=== PATIENT | female | born 1975 | race African-American/Black ===

== ENCOUNTER 2020-09-24 09:54 | Outpatient (REF) | payer MEDICAID, SELFPAY | END 2020-09-24 09:55 | disposition home or self-care (01) | LOC: HO.LAB 09:54 | PROVIDERS: Visit Provider Internal Medicine | DX: Z20.828 Contact with and (suspected) exposure to other viral communicable diseases (principal) | CPT/HCPCS: C9803; U0003 ==

== ENCOUNTER 2021-09-11 11:27 | Emergency (ER) | payer BC, MEDICAID, SELFPAY ==
--- NOTE | ~2021-09-11 | CT_ITS ---
EXAMINATION: CT HEAD WITHOUT CONTRAST CLINICAL INFORMATION: Elevated blood pressure and dizziness. COMPARISON: None TECHNIQUE: Contiguous axial imaging was performed from the skull base to vertex without intravenous administration of contrast. This CT examination was performed using dose optimization techniques as appropriate, variously including the following: *Automated exposure control *Adjustment of mA and/or kV according to patient size (this includes techniques or standardized protocols for targeted exams where dose is matched to indication/reason for exam; i.e. extremities or head) *Use of iterative reconstruction technique DLP: 711 mGy-cm FINDINGS: There is no evidence of acute intracranial hemorrhage or territorial infarction. No abnormal mass effect or midline shift is seen. Handy to white matter differentiation is well preserved. No extra-axial fluid collections are identified. The ventricles are normal in size. There is no abnormal attenuation within the brain parenchyma. The osseous structures and soft tissues are normal. The mastoid air cells and visualized portions of the paranasal sinuses are well aerated. CT/CT head/brain wo con IMPRESSION: No acute intracranial process seen.
--- NOTE | ~2021-09-11 | CT_ITS ---
EXAMINATION: CT ANGIOGRAM OF THE CHEST WITH CONTRAST (CT PULMONARY ANGIOGRAM FOR PE) CT ABDOMEN AND PELVIS WITH CONTRAST CLINICAL INFORMATION: Dizziness, shortness of breath and hypertension. Possible adrenal abnormality. COMPARISON: CXR from 09/11/2021 TECHNIQUE: Prior to contrast administration, noncontrast localization images were obtained. Subsequently, multidetector volumetric imaging was performed from the thoracic inlet to below the diaphragms following the administration of 85 mL Omnipaque 350 intravenous contrast. Also, multidetector CT imaging evaluation the abdomen and pelvis was performed after the use of intravenous contrast. No contrast reaction reported. Sagittal, coronal, and MIP oblique sagittal reformatted images were obtained on the CT workstation, uploaded to PACS, and reviewed. This CT examination was performed using dose optimization techniques as appropriate, variously including the following: *Automated exposure control *Adjustment of mA and/or kV according to patient size (this includes techniques or standardized protocols for targeted exams where dose is matched to indication/reason for exam; i.e. extremities or head) *Use of iterative reconstruction technique DLP: Total exam dose-length product 1359 mGy-cm FINDINGS: CHEST- LUNGS AND PLEURA: Lungs are well expanded and clear. Trachea and central airways are widely patent and normal in caliber. No lung nodules. No pulmonary edema, pneumothorax or pleural effusion. QUALITY OF STUDY/CONTRAST BOLUS: Satisfactory. CARDIOVASCULAR: The pulmonary arteries are normal in size. No embolic filling defects are identified within the main, lobar or segmental vessels. The heart size is normal. No pericardial effusion. Thoracic aorta is normal; no aneurysm or dissection. MEDIASTINUM/LOWER NECK: The esophagus is normal. No mediastinal mass. Thyroid gland is unremarkable. LYMPHATICS: No pathologic sized axillary, hilar or mediastinal lymph nodes. OSSEOUS STRUCTURES: Thoracic vertebra have normal height and alignment. No suspicious bone lesions. ABDOMEN AND PELVIS- LIVER: The liver has normal size, shape, and attenuation. No evidence of liver mass. GALLBLADDER AND BILIARY TREE: Gallbladder is without radiopaque stones, wall thickening or pericholecystic fluid. No dilated bile ducts. PANCREAS: Normal. No edema, pancreatic ductal dilatation or mass. SPLEEN: Normal. ADRENAL GLANDS: Normal. KIDNEYS AND URETERS: The kidneys have normal size and cortical thickness. No perinephric fluid collection. No urolithiasis or hydroureteronephrosis. BLADDER: Normal. No calculi or wall thickening. BOWEL AND PERITONEUM: Stomach is unremarkable. No dilated loops of bowel. The appendix is normal. No overt bowel wall thickening or mesenteric fat stranding. No ascites or pneumoperitoneum. ABDOMINAL WALL: Unremarkable. VASCULATURE: Normal. LYMPH NODES: No pathologic sized lymph nodes in the abdomen or pelvis. No inguinal lymphadenopathy. PELVIC VISCERA: Anteflexed, anteverted uterus is mildly enlarged, heterogeneous due to presence of leiomyomas. A submucosal leiomyoma of the right uterine fundus measures up to approximately 4 cm in its maximum dimension. Left ovary is unremarkable. 3 cm dermoid cyst of the right ovary has fat attenuation. If this has not been documented on previous imaging, than it could be further evaluated with MR imaging of the pelvis performed without and with IV contrast. A small, physiologic amount of free fluid is present in the posterior cul-de-sac. SKELETAL: The lumbar vertebra have normal height and alignment. Moderate facet arthropathy at L5-S1. Pelvic bones and proximal femurs are intact. No suspicious osseous lesion. There is osteophyte formation and subarticular sclerosis at the pubic symphysis. CT/CT angio chest PE protocol IMPRESSION: * No acute abnormalities in the chest. No evidence of pulmonary embolism. * Adrenal glands are normal. No evidence of adrenal adenoma. * Leiomyomatous uterus. * 3 cm right ovarian dermoid.
--- NOTE | ~2021-09-11 | XR_ITS ---
EXAMINATION: XR CHEST CLINICAL INFORMATION: There is old dizziness. COMPARISON: None TECHNIQUE: 2 views of the chest were obtained. FINDINGS: No significant abnormality is noted involving the heart, lungs, mediastinum, bony thorax or soft tissues. XR/XR chest 2V IMPRESSION: Unremarkable chest examination.
[2021-09-11 11:36] VITALS: BP 174/104; PULSE 92; O2SAT 100
[2021-09-11 11:51] VITALS: BP 161/69; PULSE 96; RESP 18; TEMP 36.8; O2SAT 98; BMI 41.3
[2021-09-11 12:50] LABS: MANUAL DIFF FLAG NO
[2021-09-11 12:57] LABS: Basophils Absolute Auto 0.1 X10*3/uL (0.0-0.2); Basophils Percent Auto 0.9 % (0-2); Eosinophils Percent Auto 0.6 % (0-4); Hematocrit 31.5 % (37.0-47.0); Imm Gran Abs Auto 0.01 X10*3/uL (0.00-0.03); Imm Gran Pct Auto 0.2 % (0.0-0.4); Lymphocytes Percent Auto 30.2 % (20-40); Mean Corpuscular HGB Conc 28.6 g/dl (31.0-35.0); Mean Corpuscular Hemoglobin 23.3 pg (27.0-33.0); Mean Corpuscular Volume 81.6 fL (80.0-98.0); Mean Platelet Volume 9.4 fL (9.4-12.3); Monocytes Absolute Auto 0.6 X10*3/uL (0.1-1.2); Monocytes Percent Auto 9.1 % (2-11); Neutrophils Absolute Auto 3.9 x10*3/uL (2.0-8.3); Platelet Count 488 X10*3/uL (160-400); Red Blood Count 3.86 X10*6/uL (4.20-5.50); Red Cell Distribution Width 16.4 % (11.0-16.0); White Blood Count 6.6 X10*3/uL (4.8-10.8)
[2021-09-11 13:16] LABS: Alanine Aminotransferase 13 U/L (0-31); Albumin Level 4.1 g/dL (3.5-5.0); Alkaline Phosphatase 65 U/L (39-117); Anion Gap 11 (12-20); Aspartate Amino Transferase 17 U/L (5-31); Bilirubin Total 0.2 mg/dL (0.0-1.0); Blood Urea Nitrogen 10 mg/dL (9-16); Carbon Dioxide 26 mmol/L (22-29); Chloride 100 mmol/L (96-108); Estimated Glomerular Filt Rate > 60; Glucose Random 97 mg/dL (60-115); Potassium 3.9 mmol/L (3.3-5.1); Sodium 133 mmol/L (135-145); Total Protein 8.3 g/dL (6.5-8.0)
[2021-09-11 15:08] VITALS: BP 151/90; PULSE 120; RESP 20; O2SAT 100
--- NOTE | 2021-09-11 16:02 | ECG_ITS ---
Test Reason : HIGH BP, DIZZINESS Blood Pressure : / mmHG Vent. Rate : 100 BPM Atrial Rate : 100 BPM P-R Int : 140 ms QRS Dur : 074 ms QT Int : 342 ms P-R-T Axes : 046 039 022 degrees QTc Int : 441 ms Normal sinus rhythm Normal ECG When compared with ECG of 20-JAN-2019 16:41, No significant change was found Heart rate has increased Referred By: Radha Arzola Electronically Signed By:LILLY BARKLEY MD
--- NOTE | 2021-09-11 16:03 | ED_ITS ---
HPI - General Adult General Chief complaint: General Medical Stated complaint: HIGH BLOOD PRESSURE 173/104 Time Seen by Provider: 09/11/21 15:54 Related Data Allergies Allergy/AdvReac Type Severity Reaction Status Date / Time No Known Allergies Allergy Verified 09/11/21 11:51 [No Known Allergies*] FOR[facility]LY [facility] Social History Social History Advance Directives: No Advance Directives Information Provided: No Patient : No Physical Exam Vital Signs: Vital Signs: Last Vital Signs Temp 98.2 F 09/11/21 11:51 Pulse 120 H 09/11/21 15:08 Resp 20 09/11/21 15:08 BP 151/90 H 09/11/21 15:08 Pulse Ox 100 09/11/21 15:08 Body Mass Index 41.3 Medical Decision Making Lab Data Result diagrams: 09/11/21 12:46 09/11/21 12:46 Labs: Lab Results 09/11/21 09/11/21 Range/Units 12:46 12:46 WBC 6.6 (4.8-10.8) X10*3/uL RBC 3.86 L (4.20-5.50) X10*6/uL Hgb 9.0 L (12.0-16.0) g/dl Hct 31.5 L (37.0-47.0) % MCV 81.6 (80.0-98.0) fL MCH 23.3 L (27.0-33.0) pg MCHC 28.6 L (31.0-35.0) g/dl RDW 16.4 H (11.0-16.0) % Plt Count 488 H (160-400) X10*3/uL MPV 9.4 (9.4-12.3) fL Immature Gran % (Auto) 0.2 (0.0-0.4) % Neut % (Auto) 59.0 (45-73) % Lymph % (Auto) 30.2 (20-40) % [place] % (Auto) 9.1 (2-11) % Eos % (Auto) 0.6 (0-4) % Baso % (Auto) 0.9 (0-2) % Lymph # (Auto) 2.0 (1.2-4.9) X10*3/uL [place] # (Auto) 0.6 (0.1-1.2) X10*3/uL Eos # (Auto) 0.0 (0.0-0.4) X10*3/uL Baso # (Auto) 0.1 (0.0-0.2) X10*3/uL Abs Immat Gran (auto) 0.01 (0.00-0.03) X10*3/uL Absolute Neuts (auto) 3.9 (2.0-8.3) x10*3/uL Absolute Nucleated RBC 0.000 (0.0-0.012) X10*3/uL Nucleated RBC % (auto) 0.0 (0.0-0.2) /100WBC Sodium 133 L (135-145) mmol/L Potassium 3.9 (3.3-5.1) mmol/L Chloride 100 (96-108) mmol/L Carbon Dioxide 26 (22-29) mmol/L Anion Gap 11 L (12-20) BUN 10 (9-16) mg/dL Creatinine 0.73 (0.5-1.4) mg/dL Estim Creat Clear Calc 112.0 Estimated GFR > 60 Random Glucose 97 (60-115) mg/dL Calcium 9.0 (8.4-10.2) mg/dL Total Bilirubin 0.2 (0.0-1.0) mg/dL AST 17 (5-31) U/L ALT 13 (0-31) U/L Alkaline Phosphatase 65 (39-117) U/L Total Protein 8.3 H (6.5-8.0) g/dL Albumin 4.1 (3.5-5.0) g/dL
--- NOTE | 2021-09-11 16:07 | ED.DIZZY ---
HPI - Dizziness General Chief Complaint: General Medical <RAS Luna Last Filed: 09/11/21 18:45> Stated Complaint: HIGH BLOOD PRESSURE 173/104 <RAS Luna Last Filed: 09/11/21 18:45> Time Seen by Provider: 09/11/21 15:54 <RAS Luna Last Filed: 09/11/21 18:45> Source: patient, family and EMS <RAS Luna Last Filed: 09/11/21 18:45> Mode of arrival: EMS <RAS Luna Last Filed: 09/11/21 18:45> Limitations: no limitations <RAS Luna Last Filed: 09/11/21 18:45> History of Present Illness HPI Narrative: 46-year-old female with a past medical history of obesity and hypertension currently on hydrochlorothiazide and lisinopril presenting to the ED after she was sent by the Urgent Care for elevated blood pressure with a systolic blood pressure in the 180s with associated dizziness that started around 6-8am this morning which has completely resolved at this time. She reports that she took her her blood pressure medication at approximately 04:30 when she woke up as she normally does. Than she was at work just working sitting down when she felt very dizzy and thirsty therefore she drank approximately 2 gal of water and fell off therefore she went for further evaluation treatment at the urgent care and this is when they found that she had high blood pressure and sent her here via ambulance. Patient denies any dizziness at this time lightheadedness, near syncope, difficulty walking, changes in vision, nausea/vomiting, chest pain, shortness of breath, dyspnea on exertion, orthopnea, palpitations, paresthesias, abdominal pain, back pain, dysuria, hematuria, diarrhea, rashes, recent travel or sick contacts, sore throat, cough, lower extremity edema or calf tenderness or any other symptoms complaints or concerns at this time. <RAS Luna Last Filed: 09/11/21 18:45> MD elicited complaint: dizziness <RAS Luna Last Filed: 09/11/21 18:45> Onset (ago): hour(s) (Few hours prior to arrival which has now resolved) <RAS Luna Last Filed: 09/11/21 18:45> Timing: gradual onset <RAS Luna Last Filed: 09/11/21 18:45> Severity: mild <RAS Luna Last Filed: 09/11/21 18:45> History of similar symptoms: No <RAS Luna Last Filed: 09/11/21 18:45> Exacerbating factors: nothing <RAS Luna Last Filed: 09/11/21 18:45> Relieving factors: nothing <RAS Luna Last Filed: 09/11/21 18:45> Associated symptoms: other (Feeling very thirsty) <RAS Luna Last Filed: 09/11/21 18:45> Related Data Allergies/Adverse Reactions: Allergies Allergy/AdvReac Type Severity Reaction Status Date / Time No Known Allergies Allergy Verified 09/11/21 11:51 [No Known Allergies*] <RAS Luna Last Filed: 09/11/21 18:45> Review of Systems Review of Systems: Constitutional : No Fever, No Chills, No Night Sweats, No Fatigue, No Malaise ENT/Mouth : No Ear Pain, No Nasal Congestion, No Sinus Pain, No sore throat, No Rhinorrhea Eyes: No Eye Pain, No Swelling, No Redness, No Foreign Body, No Discharge, No Vision Changes Cardiovascular : No Chest Pain, No SOB, No Dyspnea on Exertion, No Orthopnea, No Palpitations Respiratory : No Cough, No Sputum, No Wheezing, No Dyspnea Gastrointestinal : No Nausea, No Vomiting, No Diarrhea, No Constipation, No abdominal Pain, No Hematochezia, No Melena Genitourinary : No Dysuria, No Urinary Frequency, No Urinary Incontinence, No Urgency, No Flank Pain Musculoskeletal : No joint pain, No Myalgias Skin : No lacerations Neuro : + resolved Dizziness, No Focal weakness, no general weakness, No Numbness, No Paresthesias, No Loss of Consciousness, No Headache <RAS Luna Last Filed: 09/11/21 18:45> Yes all other systems are reviewed and are negative <RAS Luna Last Filed: 09/11/21 18:45> PMF Past Medical History Attestation statement: The following information was validated with the patient. <RAS Luna - Last Filed: 09/11/21 18:45> Social History Social History: Social History Alcohol intake: unknown Patient Tobacco Use Status: Tobacco use Unknown Use of substances other than those prescribed or required for medical reasons: Unknown Advance Directives: No Advance Directives Information Provided: No Patient : No <RAS Luna - Last Filed: 09/11/21 18:45> Physical Exam Vital Signs: Vital Signs: Last Vital Signs Temp 98.6 F 09/11/21 19:12 Pulse 100 09/11/21 19:12 Resp 19 09/11/21 19:12 BP 155/83 H 09/11/21 19:12 Pulse Ox 100 09/11/21 19:12 Body Mass Index 41.3 Vital signs have been reviewed as normal and appeared to be correct. Blood pressure 161/69. Heart rate normal. Respiration rate normal. Temperature normal. Oxygen saturation normal. <RAS Luna - Last Filed: 09/11/21 18:45> Vital Signs: Last Vital Signs Temp 98.6 F 09/11/21 19:12 Pulse 100 09/11/21 19:12 Resp 19 09/11/21 19:12 BP 155/83 H 09/11/21 19:12 Pulse Ox 100 09/11/21 19:12 Body Mass Index 41.3 <RAS Gomez - Last Filed: 09/11/21 19:46> Appearance: Alert. Oriented X3. No acute distress. Head: Normal external exam. Normocephalic. Atraumatic. Able to rotate head bilaterally. Eyes: PERRLA. EOMI. No nystagmus noted. Conjunctiva and sclera normal. Eyelids normal. Corneal reflex normal. ENT: EAC normal. TM's Normal. Hearing normal. Pharynx normal. Uvula midline. tongue midline. Moist mucous membranes. No trismus noted. No drooling noted. No muffled voice noted. No nystagmus noted. Neck: Normal inspection. Neck supple. FROM. No adenopathy. Trachea midline. Thyroid Normal. No meningeal signs. No neck mass noted. CVS: Normal heart rate and rhythm. Heart sound normal. No murmurs noted. Pulses normal throughout. Respiratory: No respiratory distress. Painless inspiration. Breath sounds normal. No wheezes/rales/rhonchi noted. Chest nontender. No accessory muscle usage noted or decreased air movement noted. Abdomen: Soft and nontender. Bowel sounds normal in all 4 quadrants. No distention noted. No organomegaly noted. No visible injury noted. Back: No CVA tenderness. Full range of motion noted. Skin: Skin warm and dry. Normal skin color. Normal skin turgor. No rashes/lesions/lacerations noted. Extremities: No lower extremity edema. Extremities exhibit normal range of motion. Extremities nontender. Able to shrug shoulders bilaterally and keep up against resistance. Neuro: Oriented X 3. No motor deficit. No sensory deficit. Reflexes normal. Moving all extremities. No focal motor deficits. Cranial nerves II-XI intact bilaterally. Facial strength normal. Normal cognition. Speech normal. Gait normal. Strength 5/5 throughout. No pronator drift. No tremor noted. No fasciculations noted. No rigidity noted. Muscle tone normal throughout. No asterixis noted. [id number] test normal. Heel to burgess test normal. Tandem gait normal. Does not sway with eyes open. Romberg test negative. Rapid alternating movement upper extremity normal. Rapid alternating movement lower extremity normal. Hand drop from overhead Misses face. NIHSS score 0. <RAS Luna - Last Filed: 09/11/21 18:45> NIH Stroke Scale Internal: Initial- Upon Arrival <RAS Luna Last Filed: 09/11/21 18:45> Time: 16:00 <RAS Luna Last Filed: 09/11/21 18:45> Level of Consciousness: Alert <RAS Luna Last Filed: 09/11/21 18:45> Level of Consciousness Questions: Answers both questions correctly <RAS Luna Last Filed: 09/11/21 18:45> Level of Consciousness Commands: Performs both tasks correctly <RAS Luna Last Filed: 09/11/21 18:45> Best Gaze: Normal <RAS Luna Last Filed: 09/11/21 18:45> Visual: No visual loss <RAS Luna Last Filed: 09/11/21 18:45> Facial Palsy: Normal <Radha Arzola PA - Last Filed: 09/11/21 18:45> Motor Arm (Right): No drift <Radha Arzola PA - Last Filed: 09/11/21 18:45> Motor Arm (Left): No drift <Radha Arzola PA - Last Filed: 09/11/21 18:45> Motor Leg (Right): No drift <Radha Arzola PA - Last Filed: 09/11/21 18:45> Motor Leg (Left): No drift <Radhacee Arzola PA - Last Filed: 09/11/21 18:45> Limb Ataxia: Absent <Radha Arzola PA - Last Filed: 09/11/21 18:45> Sensory: Normal <Radha Arzola PA - Last Filed: 09/11/21 18:45> Best Language: No aphasia <Radha Arzola PA - Last Filed: 09/11/21 18:45> Dysarthia: Normal <Radha Arzola PA - Last Filed: 09/11/21 18:45> Extinction and Inattention: No abnormality <Radha Arzola PA - Last Filed: 09/11/21 18:45> Score: 0 <RAS Luna - Last Filed: 09/11/21 18:45> 0 <Lavonne Martin PA - Last Filed: 09/11/21 19:46> Course Course Course Narrative: 16pm - 46-year-old female with a past medical history of obesity and hypertension currently on hydrochlorothiazide and lisinopril presenting to the ED after she was sent by the Urgent Care for elevated blood pressure with a systolic blood pressure in the 180s with associated dizziness that started around 6-8am this morning which has completely resolved at this time. - labs were already obtained the patient was waiting and reviewed and revealed patient with a baseline anemia similar compared to prior. Sodium 133 which is new for the patient. Otherwise all other labs within normal limits. - no troponin was obtained therefore troponin will be obtained despite the patient not having any chest pain, will also obtain a CT scan of brain despite the patient having a normal neuro exam and resolved dizziness, orthostatic vitals, chest x-ray an EKG then re-evaluate. <RAS Luna Last Filed: 09/11/21 18:45> Reevaluation(s) Reevaluation #1: - CT scan of brain negative for any acute processes. - CXR WNL. - EKG normal sinus rhythm and a triplet of 100 with a normal GA interval normal QRS duration normal QT/QTC interval. No acute ischemic changes are noted. Similar when compared to prior EKG 01/20/2019. - negative orthostatic vitals. - patient reported that she did not want the troponin obtained after I explained to her that is a specific cardiac enzyme and she reports that she does not want the troponin due to she is not having any chest pain and she never had any chest pain. - therefore at this time will DC home with instructions to follow-up with her primary care provider and to return if any new or worsening symptoms. Patient understands agrees with this plan. <RAS Luna - Last Filed: 09/11/21 18:45> Time: 17:19 <RAS Luna Last Filed: 09/11/21 18:45> Reevaluation #2: - I was able to convince the patient to obtain a troponin and I explained to her that she has been in sinus tachycardia since she has arrived here and I was also concerned of a PE therefore at this time will obtain a troponin, CTA of chest for PE and a CT scan of abdomen and pelvis with IV contrast to evaluate for any adrenal abnormalities and re-evaluate. Patient is agreeable to this. <RAS Luna Last Filed: 09/11/21 18:45> Time: 17:50 <RAS Luna Last Filed: 09/11/21 18:45> Reevaluation #3: Troponin along with CT scan of chest for PE and CT scan abdomen and pelvis with IV contrast to evaluate for possible adrenal abnormalities still pending at this time therefore sign-out to [facility] at this time pending above. <RAS Luna Last Filed: 09/11/21 18:45> Time: 18:44 <RAS Luna Last Filed: 09/11/21 18:45> Additional Reevaluation(s): Troponin negative, CTA of chest shows normal adrenals no pulmonary embolism, CT abdomen pelvis shows fibroid, otherwise unremarkable. Will discharge patient home <RAS Gomez - Last Filed: 09/11/21 19:46> MDM - Dizziness Medical Records Attestation: I reviewed the patient's medical records. <RAS Luna - Last Filed: 09/11/21 18:45> Lab Data Attestation: I reviewed the patient's lab results. <RAS Luna - Last Filed: 09/11/21 18:45> Result diagrams: : 09/11/21 12:46 09/11/21 12:46 <RAS Luna - Last Filed: 09/11/21 18:45> Labs: Lab Results 09/11/21 09/11/21 09/11/21 Range/Units 12:46 12:46 18:17 WBC 6.6 (4.8-10.8) X10*3/uL RBC 3.86 L (4.20-5.50) X10*6/uL Hgb 9.0 L (12.0-16.0) g/dl Hct 31.5 L (37.0-47.0) % MCV 81.6 (80.0-98.0) fL MCH 23.3 L (27.0-33.0) pg MCHC 28.6 L (31.0-35.0) g/dl RDW 16.4 H (11.0-16.0) % Plt Count 488 H (160-400) X10*3/uL MPV 9.4 (9.4-12.3) fL Immature Gran % (Auto) 0.2 (0.0-0.4) % Neut % (Auto) 59.0 (45-73) % Lymph % (Auto) 30.2 (20-40) % [place] % (Auto) 9.1 (2-11) % Eos % (Auto) 0.6 (0-4) % Baso % (Auto) 0.9 (0-2) % Lymph # (Auto) 2.0 (1.2-4.9) X10*3/uL [place] # (Auto) 0.6 (0.1-1.2) X10*3/uL Eos # (Auto) 0.0 (0.0-0.4) X10*3/uL Baso # (Auto) 0.1 (0.0-0.2) X10*3/uL Abs Immat Gran (auto) 0.01 (0.00-0.03) X10*3/uL Absolute Neuts (auto) 3.9 (2.0-8.3) x10*3/uL Absolute Nucleated RBC 0.000 (0.0-0.012) X10*3/uL Nucleated RBC % (auto) 0.0 (0.0-0.2) /100WBC Sodium 133 L (135-145) mmol/L Potassium 3.9 (3.3-5.1) mmol/L Chloride 100 (96-108) mmol/L Carbon Dioxide 26 (22-29) mmol/L Anion Gap 11 L (12-20) BUN 10 (9-16) mg/dL Creatinine 0.73 (0.5-1.4) mg/dL Estim Creat Clear Calc 112.0 Estimated GFR > 60 Random Glucose 97 (60-115) mg/dL Calcium 9.0 (8.4-10.2) mg/dL Total Bilirubin 0.2 (0.0-1.0) mg/dL AST 17 (5-31) U/L ALT 13 (0-31) U/L Alkaline Phosphatase 65 (39-117) U/L Troponin I High Sens < 3.5 (<3.5-17.0) ng/L Total Protein 8.3 H (6.5-8.0) g/dL Albumin 4.1 (3.5-5.0) g/dL Beta HCG, Quant < 2 mIU/mL <RAS Luna - Last Filed: 09/11/21 18:45> Lab Results 09/11/21 09/11/21 09/11/21 Range/Units 12:46 12:46 18:17 WBC 6.6 (4.8-10.8) X10*3/uL RBC 3.86 L (4.20-5.50) X10*6/uL Hgb 9.0 L (12.0-16.0) g/dl Hct 31.5 L (37.0-47.0) % MCV 81.6 (80.0-98.0) fL MCH 23.3 L (27.0-33.0) pg MCHC 28.6 L (31.0-35.0) g/dl RDW 16.4 H (11.0-16.0) % Plt Count 488 H (160-400) X10*3/uL MPV 9.4 (9.4-12.3) fL Immature Gran % (Auto) 0.2 (0.0-0.4) % Neut % (Auto) 59.0 (45-73) % Lymph % (Auto) 30.2 (20-40) % [place] % (Auto) 9.1 (2-11) % Eos % (Auto) 0.6 (0-4) % Baso % (Auto) 0.9 (0-2) % Lymph # (Auto) 2.0 (1.2-4.9) X10*3/uL [place] # (Auto) 0.6 (0.1-1.2) X10*3/uL Eos # (Auto) 0.0 (0.0-0.4) X10*3/uL Baso # (Auto) 0.1 (0.0-0.2) X10*3/uL Abs Immat Gran (auto) 0.01 (0.00-0.03) X10*3/uL Absolute Neuts (auto) 3.9 (2.0-8.3) x10*3/uL Absolute Nucleated RBC 0.000 (0.0-0.012) X10*3/uL Nucleated RBC % (auto) 0.0 (0.0-0.2) /100WBC Sodium 133 L (135-145) mmol/L Potassium 3.9 (3.3-5.1) mmol/L Chloride 100 (96-108) mmol/L Carbon Dioxide 26 (22-29) mmol/L Anion Gap 11 L (12-20) BUN 10 (9-16) mg/dL Creatinine 0.73 (0.5-1.4) mg/dL Estim Creat Clear Calc 112.0 Estimated GFR > 60 Random Glucose 97 (60-115) mg/dL Calcium 9.0 (8.4-10.2) mg/dL Total Bilirubin 0.2 (0.0-1.0) mg/dL AST 17 (5-31) U/L ALT 13 (0-31) U/L Alkaline Phosphatase 65 (39-117) U/L Troponin I High Sens < 3.5 (<3.5-17.0) ng/L Total Protein 8.3 H (6.5-8.0) g/dL Albumin 4.1 (3.5-5.0) g/dL Beta HCG, Quant < 2 mIU/mL <RAS Gomez - Last Filed: 09/11/21 19:46> Imaging Data Chest x-ray: Attestation: I personally reviewed and interpreted this imaging study as follows: <RAS Luna - Last Filed: 09/11/21 18:45> Radiologist's impression: FINDINGS: No significant abnormality is noted involving the heart, lungs, mediastinum, bony thorax or soft tissues. XR/XR chest 2V IMPRESSION: Unremarkable chest examination. <RAS Luna - Last Filed: 09/11/21 18:45> CT scan of brain without contrast: Attestation: I personally reviewed and interpreted this imaging study as follows: <RAS Luna - Last Filed: 09/11/21 18:45> Radiologist's impression: FINDINGS: There is no evidence of acute intracranial hemorrhage or territorial infarction. No abnormal mass effect or midline shift is seen. Handy to white matter differentiation is well preserved. No extra-axial fluid collections are identified. The ventricles are normal in size. There is no abnormal attenuation within the brain parenchyma. The osseous structures and soft tissues are normal. The mastoid air cells and visualized portions of the paranasal sinuses are well aerated. ? CT/CT head/brain wo con IMPRESSION: No acute intracranial process seen. <RAS Luna - Last Filed: 09/11/21 18:45> ECG Data Attestation: I personally reviewed and interpreted this ECG as follows: <RAS Luna Last Filed: 09/11/21 18:45> ECG interpretation date: 09/11/21 <RAS Luna - Last Filed: 09/11/21 18:45> ECG interpretation time: 16:59 <RAS Luna Last Filed: 09/11/21 18:45> Interpretation: EKG normal sinus rhythm and a triplet of 100 with a normal GA interval normal QRS duration normal QT/QTC interval. No acute ischemic changes are noted. Similar when compared to prior EKG 01/20/2019. <RAS Luna - Last Filed: 09/11/21 18:45> Critical Care Time Critical Care Time Critical Care Time: Yes <RAS Luna - Last Filed: 09/11/21 18:45> Total Critical Care Time: 60 <RAS Luna - Last Filed: 09/11/21 18:45> Attestation: I personally attest to this time spent taking care of the patient <RAS Luna - Last Filed: 09/11/21 18:45> Discharge Plan Discharge Clinical Impression: Hypertension, Acute hyponatremia, Regular sinus tachycardia <RAS Luna Last Filed: 09/11/21 18:45> Patient Disposition: Home, Self-Care <RAS Luna - Last Filed: 09/11/21 18:45> Instructions: Hyponatremia (ED), Hypertension (ED), Tachycardia (ED) <RAS Luna - Last Filed: 09/11/21 18:45> Additional Instructions: If you develop dizziness again or any chest pain or shortness of breath or feeling like her heart is racing such as palpitations you should remain turn immediately to the emergency department. Please follow-up with your primary care provider. <RAS Luna - Last Filed: 09/11/21 18:45> Referrals: Atilio Sanders MD [Primary Care Provider] - 2 days <RAS Luna - Last Filed: 09/11/21 18:45> Stand Alone Forms: Work/School Release <RAS Luna - Last Filed: 09/11/21 18:45> Print Language: Monegasque <RAS Luna - Last Filed: 09/11/21 18:45>
[2021-09-11 17:02] VITALS: BP 151/79; BP 165/79; PULSE 106; PULSE 114
[2021-09-11 17:07] VITALS: BP 167/84; PULSE 107
[2021-09-11] MEDS: iohexoL 350 MG/ML 100 ML INFUS..BTL IV (18:11)
[2021-09-11 18:16] LABS: HCG Quantitative < 2 mIU/mL
[2021-09-11 18:45] LABS: Troponin-I High Sensitivity < 3.5 ng/L (<3.5-17.0)
[2021-09-11 19:12] VITALS: BP 155/83; PULSE 100; RESP 19; TEMP 37; O2SAT 100
--- NOTE | 2021-09-11 19:47 | PC.NURSE ---
RN assumed care at 1900. Pt alert and oriented x4, calm and cooperative. Pt denies pain. Denies headache, denies dizziness. Pt ambulated without issues. Pt states I feel so much better . IV intact. Vitals stable. at bedside. Pt resting in stretcher without issues, waiting fro results and ED provider for dispo. Will continue to monitor.
== END 2021-09-11 19:58 | disposition home or self-care (01) ==
PROVIDERS: Physician Assistant Medical; Emergency Provider Emergency Medicine Emergency Medical Services; PCP Internal Medicine
DX: I10 Essential (primary) hypertension (principal); E87.1 Hypo-osmolality and hyponatremia; R00.0 Tachycardia, unspecified; Z79.899 Other long term (current) drug therapy
CPT/HCPCS: 36415; 70450; 71046; 71275; 74177; 80053; 84484; 84702; 85025; 93005; 96360; 99284; 99291; Q9967

== ENCOUNTER 2021-10-01 04:13 | Emergency (ER) | payer BC, MEDICAID, SELFPAY ==
[2021-10-01 04:25] VITALS: BP 115/79; PULSE 111; RESP 20; TEMP 37; O2SAT 100; BMI 39.4
--- NOTE | 2021-10-01 05:44 | ECG_ITS ---
Test Reason : ABD PAIN Blood Pressure : / mmHG Vent. Rate : 086 BPM Atrial Rate : 086 BPM P-R Int : 150 ms QRS Dur : 080 ms QT Int : 390 ms P-R-T Axes : 047 029 020 degrees QTc Int : 466 ms Normal sinus rhythm Normal ECG When compared with ECG of 11-SEP-2021 16:59, No significant change was found Referred By: Alma Gomes Electronically Signed By:Miles Warren
--- NOTE | 2021-10-01 05:45 | ED.ABDPAIN ---
HPI - Abdominal Pain General Chief Complaint: Abdominal Pain Stated Complaint: Flank pain Time Seen by Provider: 10/01/21 05:43 History of Present Illness HPI narrative: Patient is a 46-year-old female presents today with having bilateral flank pain radiating to the epigastric area. Had a CTA of the chest, CT of the abdomen pelvis done. There is no evidence for dissection, aneurysm. Patient complaining of pain is worse with movement. It is not worsen with exertion. No diaphoresis. No bowel urinary incontinence. No focal weakness. Patient is from home. The pain has been made worse since an incident at work where she strained her back. Patient denies any diaphoresis. No fever no chills. Positive history of hypertension. No history of diabetes, high cholesterol, smoking, [place]. No history of leg swelling. No history of blood clots. No history of travel. Related Data Previous Rx's Medication Instructions Recorded cyclobenzaprine 10 mg tablet 10 mg PO TID PRN #14 tab 10/01/21 ibuprofen 400 mg tablet 400 mg PO Q6H PRN #20 tab 10/01/21 Allergies Allergy/AdvReac Type Severity Reaction Status Date / Time No Known Allergies Allergy Verified 10/01/21 04:29 [No Known Allergies*] Physical Exam Vital Signs: Vital Signs: Last Vital Signs Temp 98.6 F 10/01/21 04:25 Pulse 111 H 10/01/21 04:25 Resp 20 10/01/21 04:25 BP 115/79 10/01/21 04:25 Pulse Ox 100 10/01/21 04:25 BMI result Body Mass Index 39.4 Appearance: Alert. Oriented X3. No acute distress. Eyes: Pupils equal, round and reactive to light. ENT: Pharynx normal. Neck: Normal inspection. Neck supple. No lymph nodes noted. No crepitus CVS: Normal heart rate and rhythm. Pulses normal. Normal S1 and S2 Respiratory: No respiratory distress. Breath sounds normal. No Wheezing. No rales Abdomen: Soft and nontender. No rigidity. No distention. good BS x4 Skin: Skin warm and dry. Normal skin color. Normal skin turgor. Extremities: No lower extremity edema. Neurovascular intact to all extremities. No Lacerations. No Rash Neuro: Oriented X 3. No motor deficit. No sensory deficit. Moving all extermities. No slurred speech. No spinal tenderness elicited on palpation. Ambulate with normal gait. Positive spare paraspinal muscle tenderness elicited on palpation bilaterally. No CVA tenderness noted. MDM - Abdominal Pain MDM Narrative Medical decision making narrative: Patient's EKG is unchanged. It showed a sinus pattern heart rate was 90 [place] QRS QT within normal limits is no acute ST segment elevation noted. Patient's LFTs are normal lipase normal no evidence for biliary issues. Had CT scan of the chest abdomen pelvis done. No evidence for aortic dissection. The CT scan was done in August. Patient is urine showed no 7 dense of infection. test was negative. Pain musculoskeletal there is no bowel urinary incontinence. There is no focal weakness. Will discharge patient home. Medical Records Attestation: I reviewed the patient's medical records. Lab Data Attestation: I reviewed the patient's lab results. Result diagrams: 10/01/21 05:55 10/01/21 06:20 Labs: Lab Results 10/01/21 10/01/21 10/01/21 Range/Units 05:55 05:55 05:55 WBC 6.5 (4.8-10.8) X10*3/uL RBC 3.74 L (4.20-5.50) X10*6/uL Hgb 8.7 L (12.0-16.0) g/dl Hct 30.8 L (37.0-47.0) % MCV 82.4 (80.0-98.0) fL MCH 23.3 L (27.0-33.0) pg MCHC 28.2 L (31.0-35.0) g/dl RDW 16.5 H (11.0-16.0) % Plt Count 514 H (160-400) X10*3/uL MPV 9.5 (9.4-12.3) fL Immature Gran % (Auto) 0.5 H (0.0-0.4) % Neut % (Auto) 58.3 (45-73) % Lymph % (Auto) 29.4 (20-40) % [place] % (Auto) 9.3 (2-11) % Eos % (Auto) 1.7 (0-4) % Baso % (Auto) 0.8 (0-2) % Lymph # (Auto) 1.9 (1.2-4.9) X10*3/uL [place] # (Auto) 0.6 (0.1-1.2) X10*3/uL Eos # (Auto) 0.1 (0.0-0.4) X10*3/uL Baso # (Auto) 0.1 (0.0-0.2) X10*3/uL Abs Immat Gran (auto) 0.03 (0.00-0.03) X10*3/uL Absolute Neuts (auto) 3.8 (2.0-8.3) x10*3/uL Absolute Nucleated RBC 0.000 (0.0-0.012) X10*3/uL Nucleated RBC % (auto) 0.0 (0.0-0.2) /100WBC Sodium (135-145) mmol/L Potassium (3.3-5.1) mmol/L Chloride (96-108) mmol/L Carbon Dioxide (22-29) mmol/L Anion Gap (12-20) BUN (9-16) mg/dL Creatinine (0.5-1.4) mg/dL Estim Creat Clear Calc Estimated GFR Random Glucose (60-115) mg/dL Calcium (8.4-10.2) mg/dL Total Bilirubin (0.0-1.0) mg/dL AST (5-31) U/L ALT (0-31) U/L Alkaline Phosphatase (39-117) U/L Total Protein (6.5-8.0) g/dL Albumin (3.5-5.0) g/dL Lipase (8-78) U/L Urine Color YELLOW Urine Appearance CLEAR Urine pH 5.5 (5.0-8.0) Ur Specific [place] 1.015 (1.005-1.025) Urine Protein NEG (NEG-TRACE) MG/DL Urine Glucose (UA) NEG (NEG) MG/DL Urine Ketones NEG (NEG) MG/DL Urine Blood NEG (NEG) Urine Nitrite NEG (NEG) Ur Leukocyte Esterase NEG (NEG) Urine Test NEGATIVE (NEGATIVE) 10/01/21 Range/Units 06:20 WBC (4.8-10.8) X10*3/uL RBC (4.20-5.50) X10*6/uL Hgb (12.0-16.0) g/dl Hct (37.0-47.0) % MCV (80.0-98.0) fL MCH (27.0-33.0) pg MCHC (31.0-35.0) g/dl RDW (11.0-16.0) % Plt Count (160-400) X10*3/uL MPV (9.4-12.3) fL Immature Gran % (Auto) (0.0-0.4) % Neut % (Auto) (45-73) % Lymph % (Auto) (20-40) % [place] % (Auto) (2-11) % Eos % (Auto) (0-4) % Baso % (Auto) (0-2) % Lymph # (Auto) (1.2-4.9) X10*3/uL [place] # (Auto) (0.1-1.2) X10*3/uL Eos # (Auto) (0.0-0.4) X10*3/uL Baso # (Auto) (0.0-0.2) X10*3/uL Abs Immat Gran (auto) (0.00-0.03) X10*3/uL Absolute Neuts (auto) (2.0-8.3) x10*3/uL Absolute Nucleated RBC (0.0-0.012) X10*3/uL Nucleated RBC % (auto) (0.0-0.2) /100WBC Sodium 138 (135-145) mmol/L Potassium 3.6 (3.3-5.1) mmol/L Chloride 103 (96-108) mmol/L Carbon Dioxide 25 (22-29) mmol/L Anion Gap 14 (12-20) BUN 11 (9-16) mg/dL Creatinine 0.70 (0.5-1.4) mg/dL Estim Creat Clear Calc 118.2 Estimated GFR > 60 Random Glucose 107 (60-115) mg/dL Calcium 8.9 (8.4-10.2) mg/dL Total Bilirubin 0.4 (0.0-1.0) mg/dL AST 15 (5-31) U/L ALT 11 (0-31) U/L Alkaline Phosphatase 66 (39-117) U/L Total Protein 7.5 (6.5-8.0) g/dL Albumin 3.6 (3.5-5.0) g/dL Lipase 21 (8-78) U/L Urine Color Urine Appearance Urine pH (5.0-8.0) Ur Specific [place] (1.005-1.025) Urine Protein (NEG-TRACE) MG/DL Urine Glucose (UA) (NEG) MG/DL Urine Ketones (NEG) MG/DL Urine Blood (NEG) Urine Nitrite (NEG) Ur Leukocyte Esterase (NEG) Urine Test (NEGATIVE) Discharge Plan Discharge Clinical Impression: Back pain Patient Disposition: Home, Self-Care Instructions: Back Pain (ED) Prescriptions: New cyclobenzaprine 10 mg tablet 10 mg PO TID PRN (Reason: pain) Qty: 14 RF: 0 ibuprofen 400 mg tablet 400 mg PO Q6H PRN (Reason: pain) Qty: 20 RF: 0 Referrals: Atilio Sanders MD [Primary Care Provider] - 2 days [facility] Past Medical History [facility] Narrative: Positive back pain no bowel urinary incontinence no focal weakness Social History Social History Alcohol intake: unknown Patient Tobacco Use Status: Tobacco use Unknown Advance Directives: No Advance Directives Information Provided: No Patient : No
[2021-10-01] MEDS: HYDROmorphone HCl 0.5 MG/0.5 ML SYRINGE IVPUSH (05:59)
[2021-10-01 06:08] LABS: MANUAL DIFF FLAG NO
[2021-10-01 06:12] LABS: Basophils Absolute Auto 0.1 X10*3/uL (0.0-0.2); Basophils Percent Auto 0.8 % (0-2); Eosinophils Absolute Auto 0.1 X10*3/uL (0.0-0.4); Eosinophils Percent Auto 1.7 % (0-4); Hematocrit 30.8 % (37.0-47.0); Hemoglobin 8.7 g/dl (12.0-16.0); Imm Gran Abs Auto 0.03 X10*3/uL (0.00-0.03); Imm Gran Pct Auto 0.5 % (0.0-0.4); Lymphocytes Absolute Auto 1.9 X10*3/uL (1.2-4.9); Lymphocytes Percent Auto 29.4 % (20-40); Mean Corpuscular HGB Conc 28.2 g/dl (31.0-35.0); Mean Corpuscular Hemoglobin 23.3 pg (27.0-33.0); Mean Corpuscular Volume 82.4 fL (80.0-98.0); Mean Platelet Volume 9.5 fL (9.4-12.3); Monocytes Absolute Auto 0.6 X10*3/uL (0.1-1.2); Monocytes Percent Auto 9.3 % (2-11); Neutrophils Absolute Auto 3.8 x10*3/uL (2.0-8.3); Neutrophils Percent Auto 58.3 % (45-73); Platelet Count 514 X10*3/uL (160-400); Red Blood Count 3.74 X10*6/uL (4.20-5.50); Red Cell Distribution Width 16.5 % (11.0-16.0); White Blood Count 6.5 X10*3/uL (4.8-10.8)
[2021-10-01 06:15] LABS: Urine Pregnancy NEGATIVE (NEGATIVE)
[2021-10-01 06:16] LABS: UPreg QC Valid YES
[2021-10-01 06:20] LABS: Appearance Urine CLEAR; Color Urine YELLOW; Glucose Urine UA NEG (NEG); Leukocyte Esterase Urine NEG (NEG); Nitrite Urine NEG (NEG); PH 5.5 (5.0-8.0); Specific Gravity - Urine 1.015 (1.005-1.025); Urine Blood NEG (NEG); Urine Ketones NEG (NEG); Urine Protein NEG (NEG-TRACE)
[2021-10-01 06:42] LABS: Alanine Aminotransferase 11 U/L (0-31); Albumin Level 3.6 g/dL (3.5-5.0); Alkaline Phosphatase 66 U/L (39-117); Anion Gap 14 (12-20); Aspartate Amino Transferase 15 U/L (5-31); Bilirubin Total 0.4 mg/dL (0.0-1.0); Blood Urea Nitrogen 11 mg/dL (9-16); Calcium 8.9 mg/dL (8.4-10.2); Carbon Dioxide 25 mmol/L (22-29); Chloride 103 mmol/L (96-108); Creatinine Clr Calc Pharmacy 118.2; Estimated Glomerular Filt Rate > 60; Glucose Random 107 mg/dL (60-115); Lipase 21 U/L (8-78); Potassium 3.6 mmol/L (3.3-5.1); Sodium 138 mmol/L (135-145); Total Protein 7.5 g/dL (6.5-8.0)
== END 2021-10-01 07:18 | disposition home or self-care (01) ==
PROVIDERS: Emergency Provider Emergency Medicine Emergency Medical Services; PCP Internal Medicine
DX: M54.9 Dorsalgia, unspecified (principal); I10 Essential (primary) hypertension
CPT/HCPCS: 36415; 80053; 81003; 81025; 83690; 85025; 93005; 96374; 99283; 99284; J1170

== ENCOUNTER 2021-10-28 08:14 | Outpatient (REF) | payer BC, MEDICAID, SELFPAY ==
[2021-10-28 09:52] LABS: Binax Internal Control QC Valid; Binax Lot number: 9864; Binax Now Covid-19 Ag Negative (Negative)
== END 2021-10-28 08:15 | disposition home or self-care (01) ==
LOC: HO.LAB 08:14
PROVIDERS: Visit Provider Internal Medicine
DX: Z20.822 Contact with and (suspected) exposure to COVID-19 (principal)
CPT/HCPCS: 36415; C9803

== ENCOUNTER → 2022-04-09 12:50 | Outpatient (BNVA) | payer OTHER, SELFPAY | PROVIDERS: PCP Internal Medicine; Visit Provider Physician Assistant | DX: S29.012A Strain of muscle and tendon of back wall of thorax, initial encounter (principal); S39.012A Strain of muscle, fascia and tendon of lower back, initial encounter; X50.1XXA Overexertion from prolonged static or awkward postures, initial encounter | CPT/HCPCS: 99203 ==

== ENCOUNTER → 2022-04-16 13:04 | Outpatient (BNVA) | payer OTHER, SELFPAY | PROVIDERS: PCP Internal Medicine; Visit Provider Physician Assistant Medical | DX: S46.811A Strain of other muscles, fascia and tendons at shoulder and upper arm level, right arm, initial encounter (principal); S39.012A Strain of muscle, fascia and tendon of lower back, initial encounter; X50.1XXA Overexertion from prolonged static or awkward postures, initial encounter | CPT/HCPCS: 99213 ==

== ENCOUNTER → 2022-04-23 13:49 | Outpatient (BNVA) | payer OTHER, SELFPAY | PROVIDERS: PCP Internal Medicine; Visit Provider Physician Assistant | DX: S46.819A Strain of other muscles, fascia and tendons at shoulder and upper arm level, unspecified arm, initial encounter (principal); S39.012A Strain of muscle, fascia and tendon of lower back, initial encounter; X50.1XXA Overexertion from prolonged static or awkward postures, initial encounter | CPT/HCPCS: 99213 ==

== ENCOUNTER → 2022-05-18 13:00 | Outpatient (BNVA) | payer OTHER, SELFPAY | PROVIDERS: PCP Internal Medicine; Visit Provider Physician Assistant Medical | DX: S46.811D Strain of other muscles, fascia and tendons at shoulder and upper arm level, right arm, subsequent encounter (principal); S39.012D Strain of muscle, fascia and tendon of lower back, subsequent encounter; X50.1XXD Overexertion from prolonged static or awkward postures, subsequent encounter | CPT/HCPCS: 99213 ==

== ENCOUNTER → 2022-05-25 14:05 | Outpatient (BNVA) | payer OTHER, SELFPAY | PROVIDERS: PCP Internal Medicine; Visit Provider Internal Medicine | DX: S46.819D Strain of other muscles, fascia and tendons at shoulder and upper arm level, unspecified arm, subsequent encounter (principal); S39.012D Strain of muscle, fascia and tendon of lower back, subsequent encounter; X50.1XXD Overexertion from prolonged static or awkward postures, subsequent encounter | CPT/HCPCS: 99213 ==

== ENCOUNTER → 2022-05-28 12:57 | Outpatient (BNVA) | payer OTHER, SELFPAY | PROVIDERS: PCP Internal Medicine; Visit Provider Physician Assistant | DX: S46.819D Strain of other muscles, fascia and tendons at shoulder and upper arm level, unspecified arm, subsequent encounter (principal); S39.012D Strain of muscle, fascia and tendon of lower back, subsequent encounter; X50.1XXD Overexertion from prolonged static or awkward postures, subsequent encounter | CPT/HCPCS: 72040; 72100; 99215 ==

== ENCOUNTER → 2022-06-04 12:52 | Outpatient (BNVA) | payer OTHER, SELFPAY | PROVIDERS: PCP Internal Medicine; Visit Provider Physician Assistant | DX: S46.819D Strain of other muscles, fascia and tendons at shoulder and upper arm level, unspecified arm, subsequent encounter (principal); S39.012D Strain of muscle, fascia and tendon of lower back, subsequent encounter; X50.1XXD Overexertion from prolonged static or awkward postures, subsequent encounter | CPT/HCPCS: 99213 ==

== ENCOUNTER 2022-06-10 18:37 | Outpatient (REF) | payer OTHER, SELFPAY ==
--- NOTE | ~2022-06-10 | MR_ITS ---
EXAMINATION: MR LUMBAR SPINE WITHOUT CONTRAST CLINICAL INFORMATION: 46-year-old with lifting injury and low back pain while walking. COMPARISON: 09/11/2021 CT abdomen and pelvis. TECHNIQUE: MRI of the lumbar spine was obtained using routine sequences without contrast. FINDINGS: Coronal Alignment: Normal. Sagittal Alignment: Normal. Lumbosacral Junction: Normal. 5 [id number]-[id number]-swjtbrs lumbar-type vertebral bodies. Vertebral Bodies: Vertebral body heights are well maintained, stable in appearance. Disc Spaces and Endplates: There is mild intervertebral disc space height loss at L5-S1, stable from previous CT, with disc desiccation noted. Remaining intervertebral disc space heights are well maintained with normal height and signal. Endplates are intact. No significant spondylosis. Spinal Canal: No abnormal developmental findings. Bone Marrow: No significant marrow-replacing process or bone marrow edema. Conus Medullaris: Terminates at L2. Morphology and signal is normal. Intradural Nerve Roots: Within normal limits. L5-S1: Mild disc bulging noted with a superimposed right subarticular to foraminal disc herniation and a superimposed tiny central disc protrusion with minimal flattening of the central dural sac. Mild ligamentum flavum thickening is noted with [id number] bilateral facet arthropathy with edematous changes involving the articular cartilage in both facet joints. There is a 4 mm synovial cyst along the medial aspect of the right facet joint without neural impingement. No significant canal stenosis. Mild bilateral neural foraminal narrowing is noted, with no definite nerve root impingement. L4-L5: Normal disc contour. Mild ligamentum flavum thickening noted with mild left-sided facet arthropathy without significant canal or neural foraminal stenosis. Remaining lumbar levels demonstrate no significant disc bulge or herniation and no significant facet arthrosis, canal or neural foraminal stenosis. Paraspinal/Retroperitoneal: The paravertebral soft tissues appear grossly unremarkable. Incidental note is made of a prominent uterine fundus, which was noted to be mildly enlarged on previous CT, likely containing a submucosal leiomyoma similar to prior exam. MR/MR lumbar spine wo con IMPRESSION: 1. Mild discogenic degenerative changes at L5-S1 with minimal central disc protrusion and right subarticular to foraminal disc protrusion without definite neural impingement. Bilateral facet arthropathy at L5-S1 also noted with mild bilateral neural foraminal stenosis without definite neural impingement. Frbr-lv-ihgrhpvh facet arthrosis at L4-L5, left more than right without canal or neural foraminal stenosis. 2. Enlarged uterine fundus similar to prior CT.
--- NOTE | ~2022-06-10 | MR_ITS ---
EXAMINATION: MR CERVICAL SPINE WITHOUT CONTRAST CLINICAL INFORMATION: 46-year-old with history of lifting injury with bilateral tingling in the fingers and low back pain. COMPARISON: None TECHNIQUE: MRI of the cervical spine was obtained using routine sequences without contrast. FINDINGS: Alignment: Mild S-shaped cervicothoracic coronal curvature suspected, minimally convex to the left at C5 with partially imaged upper thoracic dextrocurvature. Slight lordotic reversal centered at C4-C5. No spondylolisthesis or retrolisthesis. Craniocervical Junction/C1-C2 Articulations: Intact and aligned. Visualized Intracranial Structures: Within normal limits. Vertebral Bodies: Normal height. Disc Spaces and Endplates: The intervertebral disc space heights are relatively well-maintained throughout the cervical and visualized upper thoracic spine with no significant spondylosis. Endplates appear intact. Bone Marrow: No significant marrow-replacing process or bone marrow edema. C2-C3: No disc herniation, DJD, canal or neuroforaminal stenosis. C3-C4: Tiny central disc protrusion with minimal indentation of the ventral thecal sac without cord impingement or canal stenosis. Minor uncinate process spurring noted bilaterally without significant facet arthrosis and no significant neural foraminal stenosis. C4-C5: No disc herniation or canal stenosis. Minor uncovertebral spurring noted on the right and minor uncinate process spurring on the left with no significant facet arthrosis or neuroforaminal stenosis. C5-C6: No disc herniation or canal stenosis. No significant DJD or neuroforaminal stenosis. C6-C7: Minor annular bulging noted without significant DJD, canal or neuroforaminal stenosis. C7-T1: Posterolateral disc osteophyte complex noted bilaterally and a small central disc protrusion with slight flattening of the ventral dural sac without cord impingement or canal stenosis. No significant facet arthrosis or neural foraminal stenosis. T1-T2: No disc herniation or canal stenosis. Mild to moderate facet arthrosis on the right noted with mild right-sided neural foraminal stenosis. Spinal Cord: The cervical and visualized upper thoracic spinal cord is normal in morphology, caliber and signal intensity throughout. Extracranial Soft Tissues: There is a 2.3 x 1.5 cm enlarged level 2A lymph node on the left and multiple other nonenlarged bilateral IJ chain, left periparotid and posterior cervical chain lymph nodes are noted. MR/MR cervical spine wo con IMPRESSION: 1. Slight S-shaped cervicothoracic scoliotic curvature suggested, with mild lordotic reversal centered at C4-C5. 2. Very small central disc protrusions at C3-C4 and C7-T1 with minor disc bulging at C6-C7 and posterolateral disc osteophyte complex at C7-T1 bilaterally. No significant spinal canal stenosis or cord impingement. 3. Multilevel minor degrees of DJD without significant neural foraminal stenosis as detailed above. Ztvr-nj-dpxlilje facet arthropathy at T1-T2 noted on the right with mild right-sided neural foraminal stenosis. 4. Suspect upper cervical lymphadenopathy as described above, which could be reactive secondary to infectious or inflammatory disease. Follow-up clinically to confirm stability or resolution to exclude neoplastic disease. The [facility] staff will call to confirm receipt of this report with acknowledgement of the findings and any recommendations.
== END 2022-06-10 18:38 | disposition home or self-care (01) ==
LOC: HO.MRI 18:37
PROVIDERS: Visit Provider Internal Medicine
DX: M54.50 Low back pain, unspecified (principal); M54.2 Cervicalgia
CPT/HCPCS: 72141; 72148

== ENCOUNTER → 2022-06-17 14:25 | Outpatient (BNVA) | payer OTHER, SELFPAY | PROVIDERS: PCP Internal Medicine; Visit Provider Physician Assistant Medical | DX: S16.1XXD Strain of muscle, fascia and tendon at neck level, subsequent encounter (principal); S39.012D Strain of muscle, fascia and tendon of lower back, subsequent encounter; X50.1XXD Overexertion from prolonged static or awkward postures, subsequent encounter; M51.26 Other intervertebral disc displacement, lumbar region | CPT/HCPCS: 99214 ==

== ENCOUNTER → 2022-07-02 15:31 | Outpatient (BNVA) | payer OTHER, SELFPAY | PROVIDERS: PCP Internal Medicine; Visit Provider Physician Assistant | DX: M54.2 Cervicalgia (principal); M54.50 Low back pain, unspecified | CPT/HCPCS: 99213 ==

== ENCOUNTER → 2022-07-21 14:26 | Outpatient (BNVA) | payer OTHER, SELFPAY | PROVIDERS: PCP Internal Medicine; Visit Provider Physician Assistant | DX: M54.2 Cervicalgia (principal); M54.50 Low back pain, unspecified | CPT/HCPCS: 99213 ==

== ENCOUNTER 2022-07-29 15:00 | Outpatient (RCR) | payer OTHER, SELFPAY ==
--- NOTE | 2022-04-29 13:43 | MHC.PT.EP ---
[facility] [place] Office [place] Office [place] Office [address] Vineet Pham [address] [phone] F: [phone] F: [phone] F: [phone] F: [phone] Physical Therapy Plan of Care Date of Evaluation: Date of Surgery: N/A Diagnosis: lumbar strain/trapezius strain (RC) Assessment: pt presents to physical therapy with pain, decreased range of motion, decreased strength, impaired functional mobility, impaired postural awareness, and gait deviations. pt is a good candidate for skilled PT due to age, potential remediation of impairments, typical disease/condition progression and prognosis, comorbidities, and motivation. pt would benefit from tailored strengthening and stretching exercise program, functional training, gait training, postural re-training, neuromuscular re-education, modalities as needed for pain, equipment safety demonstration. Frequency and Duration: The patient will be seen 2x/wk for 4 wks Short Term Goals: pt will be I w/ HEP to promote self-management of condition. pt will demo proper sitting posture w/ lumbar roll to promote neutral spine w/ seated ADLs. pt will improve R shoulder flexion by 15 degrees to promote ease in reaching for cooking utensils on higher shelves. Body Technician/Painter Goals: pt will report a statistically significant improvement in self-reported outcome measure to promote return to PLOF. pt will improve R shoulder flexion and abduction strength by at least 1 MMT grade to promote ease in carrying groceries. pt will perform 5# lifting and reaching across body x15 reps to promote return to work-related tasks. Treatment Plan: Modalities to reduce pain, spasms and effusion. Manual therapy to restore motion and function. Therapeutic exercise to improve strength and flexibility. Neuromuscular re-education for posture and balance. Therapeutic activities to return to functional activities of daily living. Electronically signed by: Jessica Davalos PT, DPT Please sign and return to therapist. Thank you for your referral.
--- NOTE | 2022-07-29 18:06 | MHC.PT.DC ---
[facility] [place] Office [place] Office [place] Office [address] Vineet Pham [address] [facility] [phone] F: [phone] F: [phone] F: [phone] F: [phone] Physical Therapy Discharge Report Diagnosis: lumbar strain/trapezius strain (RC) Date of Surgery: N/A Date of Evaluation: 04/29/22 Date of Discharge: Treatments to Date: 14 Cancellations to Date: 0 No Shows to Date: 0 Discharge Status: Discharge Summary: Pt has made strides to reaching her goals while at therapy. Pt has reached a point in her rehabilitation in which she has plateaued. During therapy, she improved her strength, postural awareness, range of motion, and slight increase in tolerance to exercise. Trialed traction during therapy, but experienced increased discomfort so this was discontinued. She continues to has difficulty with progression of exercise in resistance as well as increase in repetitions. She has been provided with a thorough HEP and theraband to continue her exercise program at home. There are no known barriers to her continuation at home at this time. She is discharged from this physical therapy plan of care. Electronically signed by: Please sign and return to therapist. Thank you for your referral.
== END 2022-07-29 18:07 | disposition home or self-care (01) ==
LOC: HO.PT 15:00
PROVIDERS: PCP Internal Medicine; Visit Provider Physician Assistant Medical
DX: S39.012D Strain of muscle, fascia and tendon of lower back, subsequent encounter (principal); S46.011D Strain of muscle(s) and tendon(s) of the rotator cuff of right shoulder, subsequent encounter
CPT/HCPCS: 97012; 97110; 97140; 97161; 97162; 97164

== ENCOUNTER → 2024-01-19 10:56 | Outpatient (BNVA) | payer OTHER, SELFPAY | PROVIDERS: PCP Internal Medicine; Visit Provider Physician Assistant | DX: S63.602A Unspecified sprain of left thumb, initial encounter (principal); S63.502A Unspecified sprain of left wrist, initial encounter; X50.1XXA Overexertion from prolonged static or awkward postures, initial encounter | CPT/HCPCS: 29125; 73110; 73130; 99203 ==

== ENCOUNTER → 2024-01-26 15:06 | Outpatient (BNVA) | payer OTHER, SELFPAY | PROVIDERS: PCP Internal Medicine; Visit Provider Physician Assistant Medical | DX: S63.602D Unspecified sprain of left thumb, subsequent encounter (principal); S63.502D Unspecified sprain of left wrist, subsequent encounter; X50.1XXD Overexertion from prolonged static or awkward postures, subsequent encounter | CPT/HCPCS: 99213 ==